=== PATIENT | male | born 1970 | race Caucasian/White ===

== ENCOUNTER → 2020-11-18 14:48 | Outpatient (BNVA) | payer OTHER, SELFPAY | PROVIDERS: Visit Provider Anesthesiology | DX: M51.36 Other intervertebral disc degeneration, lumbar region (principal); M47.16 Other spondylosis with myelopathy, lumbar region; M43.16 Spondylolisthesis, lumbar region | CPT/HCPCS: 99212 ==

== ENCOUNTER → 2021-03-24 15:57 | Outpatient (BNVA) | payer OTHER, SELFPAY | PROVIDERS: Visit Provider Anesthesiology | DX: M51.36 Other intervertebral disc degeneration, lumbar region (principal); M47.16 Other spondylosis with myelopathy, lumbar region; M43.16 Spondylolisthesis, lumbar region | CPT/HCPCS: 99212 ==